=== PATIENT | male | born 2005 | race Caucasian/White ===

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

== ENCOUNTER 2024-02-11 21:14 | Emergency (ER) | payer OTHER ==
[2024-02-11 22:27] VITALS: RESP 16
--- NOTE | 2024-02-12 01:54 | ED ---
General Adult HPI - General Chief complaint: Back Pain/Injury Stated complaint: Back pain Time Seen by Provider: 02/12/24 01:22 Source: patient, RN notes reviewed Mode of arrival: ambulatory Limitations: no limitations - History of Present Illness Initial comments: 18-year-old male presents to the emergency department for evaluation of low back pain. Patient states that this has been going on for few weeks. He states that it is worse when he attempts to bend over. He does report that he did some heavy lifting prior to this starting. He denies any loss of bowel or bladder function, saddle anesthesia, urinary retention. Denies recent fever, chills, recent illness. - Related Data Allergies Allergy/AdvReac Type Severity Reaction Status Date / Time No Known Allergies Allergy Verified 02/11/24 22:22 Review of Systems ROS Statement: Those systems with pertinent positive or pertinent negative responses have been documented in the HPI. ROS Other: All systems not noted in ROS Statement are negative. Past Medical History Past Medical History: No Reported History History of Any Multi-Drug Resistant Organisms: None Reported Past Surgical History: No Surgical Hx Reported Past Psychological History: Anxiety Smoking Status: Never smoker Past Alcohol Use History: None Reported Past Drug Use History: None Reported General Exam Limitations: no limitations General appearance: alert, in no apparent distress Head exam: Present: atraumatic, normocephalic, normal inspection Eye exam: Present: normal appearance, PERRL, EOMI. Absent: scleral icterus, conjunctival injection, periorbital swelling ENT exam: Present: normal exam, mucous membranes moist Neck exam: Present: normal inspection. Absent: tenderness, meningismus, lymphadenopathy Respiratory exam: Present: normal lung sounds bilaterally. Absent: respiratory distress, wheezes, rales, rhonchi, stridor Cardiovascular Exam: Present: regular rate, normal rhythm, normal heart sounds. Absent: systolic murmur, diastolic murmur, rubs, gallop, clicks GI/Abdominal exam: Present: soft, normal bowel sounds. Absent: distended, tenderness, guarding, rebound, rigid Extremities exam: Present: normal inspection, full ROM, normal capillary refill. Absent: tenderness, pedal edema, joint swelling, calf tenderness Back exam: Present: normal inspection, other (Positive straight leg raise) Neurological exam: Present: alert, oriented X3, CN II-XII intact Psychiatric exam: Present: normal affect, normal mood Skin exam: Present: warm, dry, intact, normal color. Absent: rash Course Vital Signs 02/11/24 02/12/24 02/12/24 22:23 05:01 05:03 Temperature 98.0 F 97.6 F Pulse Rate 78 65 Respiratory 16 16 Rate Blood Pressure 127/82 106/59 O2 Sat by Pulse 99 98 Oximetry Medical Decision Making - Medical Decision Making Was pt. sent in by a medical professional or institution (, PA, PROCESS MOLD TECHNICIAN, urgent care, hospital, or fdc...) When possible be specific @ -[No] Did you speak to anyone other than the patient for history (EMS, parent, family, police, friend...)? What history was obtained from this source @ -[No] Did you review nursing and triage notes (agree or disagree)? Why? @ -[I reviewed and agree with nursing and triage notes] Were old charts reviewed (outside hosp., previous admission, EMS record, old EKG, old radiological studies, urgent care reports/EKG's, fdc records)? Report findings @ -[No old charts were reviewed] Differential Diagnosis (chest pain, altered mental status, abdominal pain women, abdominal pain men, vaginal bleeding, weakness, fever, dyspnea, syncope, headache, dizziness, GI bleed, back pain, seizure, CVA, palpatations, mental health, musculoskeletal)? @ -[Differential Back Pain: Strain, zoster, cauda equina syndrome, epidural abscess, vertebral osteomyelitis, discitis, fracture, subluxation, disc herniation, DJD, spinal stenosis, dissection, AAA, pancreatitis, peptic ulcer disease, pyelonephritis, kidney stone, this is not meant to be an all-inclusive list. ] EKG interpreted by me (3pts min.). @ -None X-rays interpreted by me (1pt min.). @ -X-ray lumbar spine shows no evidence of acute fracture CT interpreted by me (1pt min.). @ -[None done] U/S interpreted by me (1pt. min.). @ -[None done] What testing was considered but not performed or refused? (CT, X-rays, U/S, labs)? Why? @ -[None] What meds were considered but not given or refused? Why? @ -[None] Did you discuss the management of the patient with other professionals (professionals i.e. , PA, PROCESS MOLD TECHNICIAN, lab, RT, psych nurse, social media specialist, biological sciences professor, teacher, administrative hearing officer, briefcase sewer)? Give summary @ -[No] Was smoking cessation discussed for >3mins.? @ -[No] Was critical care preformed (if so, how long)? @ -[No] Were there social determinants of health that impacted care today? How? (Homelessness, low income, unemployed, alcoholism, drug addiction, transportation, low edu. Level, literacy, decrease access to med. care, nursing home, rehab)? @ -[No] Was there de-escalation of care discussed even if they declined (Discuss DNR or withdrawal of care, Hospice)? DNR status @ -[No] What co-morbidities impacted this encounter? (DM, HTN, Smoking, COPD, CAD, Can cer, CVA, ARF, Chemo, Hep., AIDS, mental health diagnosis, sleep apnea, morbid obesity)? @ -[None] Was patient admitted / discharged? Hospital course, mention meds given and route, prescriptions, significant lab abnormalities, going to OR and other pertinent info. @ -[Discharge.] Undiagnosed new problem with uncertain prognosis? @ -[No] Drug Therapy requiring intensive monitoring for toxicity (Heparin, Nitro, Insulin, Cardizem)? @ -[No] Were any procedures done? @ -[No] Diagnosis/symptom? @ -[Lumbar radiculopathy] Acute, or Chronic, or Acute on Chronic? @ -Acute Uncomplicated (without systemic symptoms) or Complicated (systemic symptoms)? @ -Uncomplicated Side effects of treatment? @ -[No] Exacerbation, Progression, or Severe Exacerbation? @ -[No] Poses a threat to life or bodily function? How? (Chest pain, [place], [place], pneumonia, PE, COPD, DKA, ARF, appy, cholecystitis, CVA, Diverticulitis, Homicidal, Suicidal, threat to staff... and all critical care pts) @ -[No] Disposition Clinical Impression: Lumbar radiculopathy Disposition: HOME SELF-CARE Condition: Stable Instructions (If sedation given, give patient instructions): Acute Low Back Pain (ED) Additional Instructions: Please follow up with orthopedics. Utilize anti-inflammatory medications such as ibuprofen for pain. Utilize gentle stretching. Return to the emergency department for new or worsening symptoms. Is patient prescribed a controlled substance at d/c from ED?: No Referrals: None,Stated [Primary Care Provider] - 1-2 days Kriss Gonzales DO [Doctor of Osteopathic Medicine] - 1-2 days
[2024-02-12] MEDS: KETOROLAC 15 MG/ML 1 ML VIAL IM STA (02:25)
[2024-02-12] MEDS: LIDOCAINE 4% PATCH TOPICAL ONE (02:31)
--- NOTE | 2024-02-12 04:41 | XR ---
EXAM: XR Lumbosacral Spine, 2 or 3 Views CLINICAL HISTORY: ITS.REASON XR Reason: pain TECHNIQUE: Frontal and lateral views of the lumbar spine and sacrum. COMPARISON: No relevant prior studies available. FINDINGS: Vertebrae: Unremarkable. No acute fracture. Normal alignment. Sacrum/coccyx: Unremarkable as visualized. No acute fracture. Disc spaces: No acute findings. No significant narrowing. Soft tissues: Unremarkable. IMPRESSION: Normal lumbar spine x-rays.
[2024-02-12] MEDS: HYDROcodone/APAP 5-325MG 1 EACH TAB PO STA (05:00)
[2024-02-12] MEDS: ACET/COD 300 MG/30 MG STARTER PACK 6 TAB BTL PO STA (05:01)
[2024-02-12 05:03] VITALS: PULSE 65; TEMP 97.6
[2024-02-12 05:04] VITALS: BP 106/59
== END 2024-02-12 05:04 | disposition home or self-care (01) ==
LOC: EC 21:14
DX: M54.16 Radiculopathy, lumbar region (principal)
CPT/HCPCS: 99283; 96372; 72100; J1885

== ENCOUNTER → 2024-12-18 | Outpatient (CLI) | payer BC | LOC: CPPFTMAIN 14:59 | PROVIDERS: ATTEND Family Medicine | DX: J45.20 Mild intermittent asthma, uncomplicated (principal) | CPT/HCPCS: 94060; 94726; 94729 ==

== ENCOUNTER → 2025-02-12 | Outpatient (CLI) | payer BC ==
--- NOTE | 2025-02-12 15:33 | XR ---
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 FINDINGS: No evidence of any acute osseous pathology. No evidence of loss of vertebral body height i s seen. There is normal alignment of the lumbar vertebral bodies. Minimal degeneration changes throug hout the spine with osteophytes. IMPRESSION: 1. No acute fracture. 2. Minimal multilevel disc degeneration. [facility], , 02/12/2025 3:31 PM
== END | disposition home or self-care (01) ==
LOC: RADXRMAIN 14:59
PROVIDERS: ATTEND Family Medicine
DX: M51.369 Other intervertebral disc degeneration, lumbar region without mention of lumbar back pain or lower extremity pain (principal); M54.32 Sciatica, left side
CPT/HCPCS: 72110